=== PATIENT | male | born 2000 | race African-American/Black ===

== ENCOUNTER 2023-07-31 01:34 | Emergency (ER) | payer SELFPAY ==
[2023-07-31] MEDS ORDERED: Albuterol 0.083% 2.5 MG/3 ML Neb Soln NEB ONE (01:51)
[2023-07-31] MEDS ORDERED: Albuterol/Ipratropium 3.0-0.5 MG/3 ML Neb Soln NEB ONE (01:51)
[2023-07-31 02:51] LABS: CORONAVIRUS COVID-19 NAA NEGATIVE (NEGATIVE); INFLUENZA A NAA NEGATIVE (NEGATIVE); INFLUENZA B NAA NEGATIVE (NEGATIVE)
[2023-07-31] MEDS ORDERED: Dexamethasone 4 MG Tab PO ONE (03:25)
== END 2023-07-31 03:34 | disposition home or self-care (01) ==
LOC: MW.ED 01:34
DX: J45.901 Unspecified asthma with (acute) exacerbation (principal); Z91.048 Other nonmedicinal substance allergy status
CPT/HCPCS: 0240U; 99285; J7620-GY